=== PATIENT | male | born 2000 | race Native Hawaiian/Other Pacific Islander ===

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

== ENCOUNTER 2022-05-30 09:30 | Emergency (ER) | payer OTHER ==
[~2022-05-30] VITALS: Ht 188 cm; Wt 73.5 kg
[2022-05-30 09:30] VITALS: TEMP 98.2
[2022-05-30 10:38] VITALS: BP 132/66
== END 2022-05-30 10:38 | disposition home or self-care (01) ==
LOC: ED 09:30
DX: F41.0 Panic disorder [episodic paroxysmal anxiety] (principal); R06.4 Hyperventilation; R20.2 Paresthesia of skin
CPT/HCPCS: 99282